=== PATIENT | male | born 1970 | race African-American/Black ===

== ENCOUNTER 2022-10-20 13:37 | Outpatient (CLI) | payer MEDICAID, SELFPAY | END 2022-10-20 13:38 | disposition home or self-care (01) | PROVIDERS: PCP Family Medicine; Visit Provider Nurse Practitioner Family | DX: E78.5 Hyperlipidemia, unspecified (principal); I10 Essential (primary) hypertension | CPT/HCPCS: 80053; 80061 ==

== ENCOUNTER 2023-06-03 14:22 | Outpatient (CLI) | payer MEDICAID, SELFPAY | END 2023-06-03 14:23 | disposition home or self-care (01) | PROVIDERS: PCP Family Medicine; Visit Provider Nurse Practitioner Family | DX: E78.5 Hyperlipidemia, unspecified (principal); I10 Essential (primary) hypertension | CPT/HCPCS: 80053; 80061 ==